=== PATIENT | male | born 1975 ===

== ENCOUNTER 2018-05-30 23:49 | Emergency (ER) | payer OTHER ==
[2018-05-31 00:07] VITALS: RESP 16
[2018-05-31] MEDS ORDERED: Sodium Chloride 0.9% 1,000 ML IV ONE (00:27)
[2018-05-31] MEDS ORDERED: DiphenhydrAMINE 50 mg/ml Inj IVP STA (00:27)
[2018-05-31] MEDS ORDERED: MethylPREDNISolone 40 mg Vial IVP STA (00:27)
[2018-05-31] MEDS ORDERED: DiphenhydrAMINE 50 mg/ml Inj ONE (00:27)
[2018-05-31] MEDS ORDERED: Sodium Chloride 0.9% 1,000 ML ONE (00:27)
--- NOTE | 2018-05-31 02:07 | C.PDOC ---
History Of Present Illness 43 year old male presents to the emergency department with complaints of diffuse hives all over his body since 6PM yesterday. Patient states that yesterday he had a new type of coffee while at work. Patient states that today he was eating soup and he felt like it was stuck in his throat. Patient reports taking Benadryl prior to arrival with no relief of symptoms. Patient reports nausea and itchiness but denies known allergies or drug use/smoking. Time Seen by Provider: 05/31/18 00:25 Chief Complaint (Nursing): Abnormal Skin Integrity History Per: Patient History/Exam Limitations: no limitations Onset/Duration Of Symptoms: Days (1) Current Symptoms Are (Timing): Still Present Quality Of Symptoms: Itching, Other (hives) Past Medical History Reviewed: Historical Data, Nursing Documentation, Vital Signs Vital Signs: Last Vital Signs Temp 98.5 F 05/31/18 00:03 Pulse 105 H 05/31/18 00:03 Resp 16 05/31/18 00:03 BP 120/75 05/31/18 00:03 Pulse Ox 100 05/31/18 00:03 - Medical History PMH: No Chronic Diseases Surgical History: No Surg Hx Family History: States: No Known Family Hx - Social History Hx Alcohol Use: No Hx Substance Use: No - Immunization History Hx Influenza Vaccination: No Hx Pneumococcal Vaccination: No Review Of Systems Except As Marked, All Systems Reviewed And Found Negative. Constitutional: Negative for: Fever, Chills Cardiovascular: Negative for: Chest Pain, Palpitations Respiratory: Negative for: Cough, Shortness of Breath Gastrointestinal: Positive for: Nausea. Negative for: Vomiting, Abdominal Pain, Diarrhea Skin: Positive for: Rash (hives, itchy) Physical Exam - Physical Exam Appears: Non-toxic, No Acute Distress Skin: Warm, Dry, Rash (diffuse urticaria all over body) Head: Atraumatic, Normacephalic Eye(s): bilateral: Normal Inspection, PERRL, EOMI Nose: Normal Oral Mucosa: Moist Tongue: Normal Appearing, No Swelling Lips: Normal Appearing, No Swelling Throat: Normal, No Erythema, No Exudate Neck: Normal, Supple Chest: Symmetrical, No Tenderness Cardiovascular: Rhythm Regular, No Murmur Respiratory: Normal Breath Sounds, No Accessory Muscle Use, No Rales, No Rhonchi, No Wheezing, Other (speaking full sentences) Gastrointestinal/Abdominal: Soft, No Tenderness, No Guarding, No Rebound Extremity: Normal ROM Neurological/Psych: Oriented x3, Normal Speech, Normal Cognition ED Course And Treatment O2 Sat by Pulse Oximetry: 100 (RA) Pulse Ox Interpretation: Normal Medical Decision Making Medical Decision Making: Plan: Benadryl 50mg IVP Pepcid 20mg IVP Solu-Medrol 125mg IVP NaCl IV Fluids patient reports improvement upon treatment, is clear for discharge home. Disposition Counseled Patient/Family Regarding: Diagnosis, Need For Followup - Disposition Referrals: Tayo Amaya MD [Staff Provider] - [facility] [Outside] [facility] [Outside] Disposition: HOME/ ROUTINE Disposition Time: 02:38 ( ) Condition: IMPROVED Additional Instructions: HASMUKH POOL, thank you for letting us take care of you today. Your provider was Melissa Pruitt MD and you were treated for ALLERGIC REACTION. The emergency medical care you received today was directed at your acute symptoms. If you were prescribed any medication, please fill it and take as directed. It may take several days for your symptoms to resolve. Return to the Emergency Department if your symptoms worsen, do not improve, or if you have any other problems. Please contact your doctor or call one of the physicians/clinics you have been referred to that are listed on the Patient Visit Information form that is included in your discharge packet. Bring any paperwork you were given at discharge with you along with any medications you are taking to your follow up visit. Our treatment cannot replace ongoing medical care by a primary care provider outside of the emergency department. Thank you for allowing the [facility] team to be part of your care today. If you had an X-Ray or CT scan: A Radiologist will review the ED reading if any change in treatment is needed we will contact you. If you had a blood, urine, or wound culture: It will take several days for the results, if any change in treatment is needed we will contact you. If you had an STI test: It will take 48 hours for the results. Please call after 1 week if you have not heard back. Prescriptions: Famotidine [Pepcid] 20 mg PO DAILY #10 tab predniSONE [Prednisone] 40 mg PO DAILY #10 tab Instructions: Hives (DC) Forms: [email or web address] (Serbian), General Discharge Instructions - POA Present On Arrival: None - Clinical Impression Clinical Impression: Urticaria - Scribe Statement The provider has reviewed the documentation as recorded by the Scribe (Brigido Benitez) Provider Attestation: All medical record entries made by the Scribe were at my direction and personally dictated by me. I have reviewed the chart and agree that the record accurately reflects my personal performance of the history, physical exam, medical decision making, and the department course for this patient. I have also personally directed, reviewed, and agree with the discharge instructions and disposition.
[2018-05-31 02:58] VITALS: BP 109/69; PULSE 86; TEMP 98.9; O2SAT 96
== END 2018-05-31 02:58 | disposition home or self-care (01) ==
LOC: C.ER 23:49
DX: L50.9 Urticaria, unspecified (principal)
CPT/HCPCS: 96374; 96375; 99284; J1200; J2920; J7030

== ENCOUNTER 2018-06-02 15:12 | Emergency (ER) | payer OTHER ==
[2018-06-02 15:35] VITALS: RESP 20; O2SAT 97
[2018-06-02] MEDS ORDERED: Sodium Chloride 0.9% 1,000 ML IV ONE (16:05)
[2018-06-02] MEDS ORDERED: DiphenhydrAMINE 50 mg/ml Inj IVP STA (16:07)
[2018-06-02] MEDS ORDERED: DiphenhydrAMINE 50 mg/ml Inj ONE (16:19)
--- NOTE | 2018-06-02 16:25 | RAD ---
Date of service: 06/02/2018 HISTORY: chest pain COMPARISON: No prior. TECHNIQUE: 1 view obtained. FINDINGS: LUNGS: No active pulmonary disease. PLEURA: No significant pleural effusion identified, no pneumothorax apparent. CARDIOVASCULAR: No aortic atherosclerotic calcification present. Normal cardiac size. No pulmonary vascular congestion. OSSEOUS STRUCTURES: No significant abnormalities. VISUALIZED UPPER ABDOMEN: Normal. OTHER FINDINGS: None. IMPRESSION: No active disease.
[2018-06-02] MEDS ORDERED: Sodium Chloride 0.9% 1,000 ML ONE (16:33)
[2018-06-02 16:38] LABS: BASO % 0.2 % (0.0-2.0); EOS % 0.2 % (0.0-4.0); HEMOGLOBIN 13.2 g/dL (12.0-18.0); LYMPH # 1.9 K/uL (1.0-4.3); MEAN CELL VOLUME 87.3 fL (80.0-94.0); MEAN CORPUSCULAR HEMOGLOBIN 29.5 pg (27.0-31.0); MEAN CORPUSCULAR HGB CONC 33.8 g/dL (33.0-37.0); MEAN PLATELET VOLUME 8.2 fL (7.2-11.7); MONO # 0.9 K/uL (0.0-0.8); MONO % 5.9 % (0.0-10.0); NEUT # 11.7 K/uL (1.8-7.0); NEUT % 80.7 % (50.0-75.0); NRBC % 0.1 % (0.0-2.0); RBC 4.47 Mil/uL (4.40-5.90); RED CELL DISTRIBUTION WIDTH 14.3 % (11.5-14.5); WHITE BLOOD COUNT 14.4 K/uL (4.8-10.8)
[2018-06-02 16:44] LABS: ALB/GLOB RATIO 1.6 (1.0-2.1); ALBUMIN 4.3 g/dL (3.5-5.0); ALT/SGPT 40 U/L (21-72); AST/SGOT 34 U/L (17-59); BLOOD UREA NITROGEN 21 mg/dL (9-20); CALCIUM 9.2 mg/dl (8.6-10.4); GFR NON-AFRICAN AMERICAN > 60
--- NOTE | 2018-06-02 18:22 | C.PDOC ---
Time Seen by Provider: 06/02/18 15:42 Chief Complaint (Nursing): Abnormal Skin Integrity History Per: Patient Onset/Duration Of Symptoms: Days (3) Current Symptoms Are (Timing): Still Present Possible Cause: Unknown Associated Symptoms: Skin Rash, Itching, Redness Home/EMS Treatment: Benadryl, Steroids, H2 Blockers Severity: Moderate Additional History Per: Prior Records Past Medical History Reviewed: Historical Data, Nursing Documentation, Vital Signs Vital Signs: Last Vital Signs Temp 98.9 F 06/02/18 15:30 Pulse 107 H 06/02/18 15:30 Resp 20 06/02/18 15:30 BP 134/86 06/02/18 15:30 Pulse Ox 97 06/02/18 15:30 - Medical History PMH: No Chronic Diseases Family History: States: Unknown Family Hx - Social History Hx Alcohol Use: No Hx Substance Use: No - Immunization History Hx Influenza Vaccination: No Hx Pneumococcal Vaccination: No Review Of Systems Except As Marked, All Systems Reviewed And Found Negative. Constitutional: Negative for: Fever, Weakness ENT: Positive for: Throat Pain Cardiovascular: Positive for: Chest Pain Respiratory: Negative for: Cough, Shortness of Breath Gastrointestinal: Negative for: Vomiting, Abdominal Pain, Diarrhea Musculoskeletal: Negative for: Neck Pain Skin: Positive for: Rash Neurological: Negative for: Weakness, Numbness, Seizures, Altered Mental Status, Headache Physical Exam - Physical Exam Appears: Non-toxic, No Acute Distress Skin: Warm, Dry, Rash (diffuse erythematous irregularly shaped rash) Head: Atraumatic, Normacephalic Eye(s): bilateral: PERRL, EOMI Oral Mucosa: Moist, No Drooling, No Trismus Throat: Erythema (mild), No Exudate, No Drooling, No Mass Neck: Normal ROM, Supple Lymphatic: No Adenopathy Cardiovascular: Rhythm Regular Respiratory: Normal Breath Sounds, No Accessory Muscle Use, No Stridor, No Wheezing Gastrointestinal/Abdominal: Soft, No Tenderness Back: No CVA Tenderness Extremity: Normal ROM, No Pedal Edema, No Calf Tenderness Neurological/Psych: Oriented x3, Normal Motor, Normal Sensation ED Course And Treatment - Laboratory Results Result Diagrams: 06/02/18 16:25 06/02/18 16:25 Lab Results: Troponin I < 0.0120 ng/mL (0.00-0.120) 06/02/18 16:25 Total Bilirubin 0.5 mg/dL (0.2-1.3) 06/02/18 16:25 AST 34 U/L (17-59) 06/02/18 16:25 ALT 40 U/L (21-72) 06/02/18 16:25 Alkaline Phosphatase 58 U/L (38-126) 06/02/18 16:25 Total Protein 6.9 g/dL (6.3-8.3) 06/02/18 16:25 Albumin 4.3 g/dL (3.5-5.0) 06/02/18 16:25 Globulin 2.7 gm/dL (2.2-3.9) 06/02/18 16:25 Albumin/Globulin Ratio 1.6 (1.0-2.1) 06/02/18 16:25 Interpretation Of Abnormal: Elevated CRP, but normal ESR. ECG: Interpreted By Me, Viewed By Me ECG Rhythm: Sinus Rhythm, Nonspecific Changes ECG Interpretation: No Acute Changes Rate From EC O2 Sat by Pulse Oximetry: 97 Pulse Ox Interpretation: Normal - Radiology CXR: Viewed By Me, Read By Radiologist CXR Interpretation: Yes: No Acute Disease Reassessment Condition: Improved Progress - Interventions Interventions:: Observation, Intravenous fluid - Medications Administered Intravenous: Antihistamine (H-1), Corticosteroid, H-2 tavia - Data Reviewed Data Reviewed: Lab, Diagnostic imaging, EKG, Old records - Patient Status Patient status: Mostly improved - Continuity of Care Discussed patient case with:: Patient, Family-HIPPA compliant, ED Nurse - Patient Plan Patient Plan: Discharge, F/U with PCP, Continue present meds Disposition Counseled Patient/Family Regarding: Studies Performed, Diagnosis, Need For Followup, Rx Given - Disposition Disposition: HOME/ ROUTINE Disposition Time: 18:23 Condition: IMPROVED Additional Instructions: Take the Pepcid twice a day. Take the hydroxyzine OR the Benadryl as needed for itching. Follow up with a Intake Manager for further evaluation and treatment. Return to the ER if you develop trouble breathing or swallowing, worsening of symptoms or if you have any other concerns. Prescriptions: Hydroxyzine HCl 25 mg PO Q6 PRN #30 tablet PRN Reason: Itching / Pruritus Instructions: Skin Rash (DC) Forms: [employer] (Macedonian) - Clinical Impression Clinical Impression: Generalized rash
[2018-06-02 18:53] VITALS: BP 114/68; PULSE 71; TEMP 98.1
--- NOTE | 2018-06-03 18:27 | CARD ---
APPROVED REPORT Date of service: 06/02/2018 EKG Measurement Heart [id number] <Conclusion> Normal sinus rhythm Normal ECG
== END 2018-06-02 19:09 | disposition home or self-care (01) ==
LOC: C.ER 15:12
DX: R21 Rash and other nonspecific skin eruption (principal)
CPT/HCPCS: 71045; 80053; 84484; 85025; 85651; 86140; 87070; 87430; 93005; 96361; 96374; 96375; 99283; J1200; J2930; J7030